=== PATIENT | female | born 1995 | race Caucasian/White ===

== ENCOUNTER 2020-03-10 15:05 | Observation (INO) | payer OTHER ==
[~2020-03-10] VITALS: Ht 154.9 cm; Wt 70.8 kg
[2020-03-10] MEDS ORDERED: PNV91TAB8 PO (15:35)
[2020-03-10 15:38] VITALS: BP 116/59
[2020-03-10] MEDS ORDERED: PANTOPRAZOLE 40 MG TABEC PO ONE ×2 (15:55→16:02)
[2020-03-10] MEDS ORDERED: FAMOTIDINE 20 MG TAB PO ONE (15:55)
[2020-03-10] MEDS ORDERED: CALC500C17 PO (16:00)
[2020-03-10] MEDS ORDERED: FAMOTIDINE 20 MG TAB ONE (16:02)
[2020-03-10 16:18] LABS: BASOPHILS % (AUTO) 0.1 % (0.0-2.0); EOSINOPHILS % (AUTO) 0.4 % (0.0-4.0); HEMATOCRIT 31.9 % (36-48); HEMOGLOBIN 10.8 g/dL (12.0-16.0); LYMPHOCYTES # (AUTO) 0.8 K/uL (2.5-16.5); LYMPHOCYTES % (AUTO) 11.1 % (20.5-51.1); MEAN CORPUSCULAR HEMOGLOBIN 28 pg (27-31); MEAN CORPUSCULAR HGB CONC 34 g/dL (33-37); MEAN CORPUSCULAR VOLUME 82.4 fL (80-94); MONOCYTES # (AUTO) 0.6 K/uL (0.8-1.0); MONOCYTES % (AUTO) 7.8 % (1.7-9.3); NEUTROPHILS # (AUTO) 6.1 K/uL (1.8-7.7); NEUTROPHILS % (AUTO) 80.6 % (42.2-75.2); PLATELET COUNT (AUTO) 190 K/uL (140-450); RED BLOOD CELL COUNT(AUTO) 3.87 MIL/uL (4.20-5.40); RED CELL DISTRIBUTION WIDTH 13.6 % (11.6-13.7); WHITE BLOOD COUNT (AUTO) 7.5 K/uL (4.8-10.8)
[2020-03-10 16:21] LABS: APPEARANCE,URINE CLOUDY (CLEAR); BILIRUBIN,URINE 1+ (NEGATIVE); BLOOD, URINE NEGATIVE (NEGATIVE); COLOR,URINE DARK YELLOW (YELLOW); LEUKOCYTE ESTERASE ,URINE 2+ (NEGATIVE); NITRITE, URINE NEGATIVE (NEGATIVE); UGLUCOSE NEGATIVE (NEGATIVE)
[2020-03-10 16:43] LABS: ALBUMIN 2.8 g/dL (3.4-5.0); ANION GAP 12.1 (8-16); CARBON DIOXIDE 24.4 mmol/L (21-32); CREATININE 0.5 mg/dL (0.6-1.3); POTASSIUM 3.5 mmol/L (3.5-5.1); TOTAL BILIRUBIN 1.1 mg/dL (0.0-1.0)
[2020-03-10 16:47] LABS: RBC,URINE 0-5 /HPF (0-5); WBC,URINE 16-25 (MOD) /HPF (0-5)
== END 2020-03-10 18:05 | disposition home or self-care (01) ==
LOC: MLD 15:05
PROVIDERS: ADMIT Obstetrics & Gynecology; ATTEND Obstetrics & Gynecology
DX: O99.612 Diseases of the digestive system complicating pregnancy, second trimester (principal); K21.9 Gastro-esophageal reflux disease without esophagitis; Z3A.26 26 weeks gestation of pregnancy
CPT/HCPCS: 36415; 59025; 80053; 81001; 85025; 87086; G0378

== ENCOUNTER 2020-06-24 04:30 | Emergency (ER) | payer OTHER ==
[~2020-06-24] VITALS: Ht 154.9 cm; Wt 69.9 kg
[~2020-06-24 04:30] MED LIST: CALC500C17 PO; PNV91TAB8 PO
[2020-06-24 04:32] VITALS: BP 124/71
--- NOTE | 2020-06-24 04:32 | NUR ---
TO BED AMBULATORY
--- NOTE | 2020-06-24 04:42 | NUR ---
25/F BIB SELF COMPLAINING OF NON-RADIATING EPIGASTRIC PAIN 09/30 SINCE 2299. PT ALREADY HAD 3 EPISODES OF VOMITING SINCE. PT DENIES ANY PAINFUL URINATION, FEVER, CHILLS, DIARRHEA, VAGINAL DISCHARGES. PT ALSO 9 DAYS POST-. PT NOT IN DISTRESS, VS STABLE. PT KEPT COMFORTABLE, SAFETY MEASURES IN PLACE. WILL CONTINUE TO MONITOR. DENIES PMH NKA
--- NOTE | 2020-06-24 05:20 | NUR ---
EKG PERFORMED AT BEDSIDE. EKG READS SINUS RHYTHM @ 52
--- NOTE | 2020-06-24 05:39 | NUR ---
PT OFF TO CT
[2020-06-24] MEDS: ONDANSETRON 4 MG/2 ML VIAL IVP ONE (05:42)
[2020-06-24] MEDS: NACL 0.9% 1,000 ML IV SCH (05:42)
[2020-06-24 05:43] LABS: BASOPHILS % (AUTO) 0.2 % (0.0-2.0); EOSINOPHILS % (AUTO) 0.1 % (0.0-4.0); HEMATOCRIT 29.8 % (36-48); HEMOGLOBIN 9.8 g/dL (12.0-16.0); LYMPHOCYTES % (AUTO) 12.6 % (20.5-51.1); MEAN CORPUSCULAR HEMOGLOBIN 27 pg (27-31); MEAN CORPUSCULAR HGB CONC 33 g/dL (33-37); MEAN CORPUSCULAR VOLUME 81.1 fL (80-94); MONOCYTES # (AUTO) 0.3 K/uL (0.8-1.0); MONOCYTES % (AUTO) 3.4 % (1.7-9.3); NEUTROPHILS # (AUTO) 6.8 K/uL (1.8-7.7); NEUTROPHILS % (AUTO) 83.7 % (42.2-75.2); PLATELET COUNT (AUTO) 400 K/uL (140-450); RED BLOOD CELL COUNT(AUTO) 3.68 MIL/uL (4.20-5.40); RED CELL DISTRIBUTION WIDTH 14.6 % (11.6-13.7); WHITE BLOOD COUNT (AUTO) 8.2 K/uL (4.8-10.8)
[2020-06-24] MEDS: MORPHINE SULFATE 2 MG/ML SYR IVP ONE (05:43)
[2020-06-24] MEDS: PANTOPRAZOLE 40 MG INJ VIAL IVP ONE (05:43)
--- NOTE | 2020-06-24 05:46 | NUR ---
PT BACK FROM CT
[2020-06-24 05:52] LABS: APPEARANCE,URINE HAZY (CLEAR); BILIRUBIN,URINE NEGATIVE (NEGATIVE); BLOOD, URINE 1+ (NEGATIVE); COLOR,URINE YELLOW (YELLOW); LEUKOCYTE ESTERASE ,URINE NEGATIVE (NEGATIVE); NITRITE, URINE NEGATIVE (NEGATIVE); PH,URINE 7.5 (5.0-9.0); UGLUCOSE NEGATIVE (NEGATIVE)
[2020-06-24 05:58] LABS: ALBUMIN 3.2 g/dL (3.4-5.0); ANION GAP 11.1 (8-16); CARBON DIOXIDE 27.8 mmol/L (21-32); CREATININE 0.5 mg/dL (0.6-1.3); POTASSIUM 3.9 mmol/L (3.5-5.1); TOTAL BILIRUBIN 0.8 mg/dL (0.0-1.0)
[2020-06-24 06:07] LABS: RBC,URINE 0-5 /HPF (0-5)
--- NOTE | 2020-06-24 06:28 | NUR ---
VS TAKEN. PT BRADYCARDIC HR 49. MADE AWARE. REPEAT EKG ORDERED. Addendum: 06/24/[address] LAZO CANCELLED REPEAT EKG. CURRENT HR 54. PT NOT IN DISTRESS.
--- NOTE | 2020-06-24 06:31 | NUR ---
US AT BEDSIDE
[2020-06-24] MEDS ORDERED: cefTRIAXone 1,000 MG VIAL ONE (06:35)
--- NOTE | 2020-06-24 07:32 | NUR ---
ENDORSED TO RUTH ANN BEST FOR CONTINUITY OF CARE
[2020-06-24] MEDS ORDERED: CEPH-588 PO (10:11)
--- NOTE | 2020-06-24 11:07 | NUR ---
Patient discharged with v/s stable. Written and verbal after care instructions given and explained. Patient verbalized understanding. Ambulatory with steady gait. All questions addressed prior to discharge. Advised to follow up with PMD.
[2020-06-24 11:11] VITALS: BP 119/64
== END 2020-06-24 11:07 | disposition left against medical advice (07) ==
LOC: MED 04:30
DX: K80.20 Calculus of gallbladder without cholecystitis without obstruction (principal); N39.0 Urinary tract infection, site not specified; Z79.899 Other long term (current) drug therapy
CPT/HCPCS: 36415; 74176; 76700; 80053; 81001; 83605; 83690; 84484; 85025; 87086; 93005; 96365; 96375; 99285; C9113; J0696; J2270; J2405; J7030

== ENCOUNTER 2020-06-25 16:28 | Emergency (ER) | payer OTHER ==
[~2020-06-25] VITALS: Ht 154.9 cm; Wt 69.9 kg
[~2020-06-25 16:28] MED LIST changes: -CALC500C17 PO
[2020-06-25 16:39] VITALS: BP 127/80
--- NOTE | 2020-06-25 16:40 | NUR ---
PT TAKEN TO ER BED 11 FOR BEDSIDE TRIAGE.
--- NOTE | 2020-06-25 16:43 | NUR ---
25 Y/O FEMALE C/O ABDOMINAL PAIN 09/30 DESCRIBES SHARP AND CONSTANT NON-RADIATING X1DAY. PT STATES +NAUSEA NO VOMITING, DENIES FEVER/CHILLS. PT STATES SHE WAS SEEN HERE IN ER YESTERDAY AND WAS TOLD IT WAS GALLSTONES, PRESCRIBED MEDICATION BUT SYMPTOMS HAVE WORSENED SINCE D/C YESTERDAY. ABDOMEN IS SOFT, ROUND, NON-TENDER TO PALPATION, BOWEL SOUNDS ACTIVE X4. LAST BM 06/24/20. DENIES PMH NKA
--- NOTE | 2020-06-25 16:57 | NUR ---
Pt ambulated to restroom for UA collection.
[2020-06-25] MEDS ORDERED: MORPHINE SULFATE 4 MG/ML SYR IVP ONE (19:20)
[2020-06-25] MEDS ORDERED: NACL 0.9% 1,000 ML IV ONE (19:20)
[2020-06-25] MEDS ORDERED: ONDANSETRON 4 MG/2 ML VIAL IVP ONE (19:20)
[2020-06-25 19:36] LABS: BASOPHILS % (AUTO) 0.1 % (0.0-2.0); EOSINOPHILS % (AUTO) 0.7 % (0.0-4.0); HEMATOCRIT 29.6 % (36-48); HEMOGLOBIN 9.7 g/dL (12.0-16.0); LYMPHOCYTES # (AUTO) 1.4 K/uL (2.5-16.5); LYMPHOCYTES % (AUTO) 21.2 % (20.5-51.1); MEAN CORPUSCULAR HEMOGLOBIN 27 pg (27-31); MEAN CORPUSCULAR HGB CONC 33 g/dL (33-37); MEAN CORPUSCULAR VOLUME 82.7 fL (80-94); MONOCYTES # (AUTO) 0.4 K/uL (0.8-1.0); MONOCYTES % (AUTO) 6.7 % (1.7-9.3); NEUTROPHILS # (AUTO) 4.6 K/uL (1.8-7.7); NEUTROPHILS % (AUTO) 71.3 % (42.2-75.2); PLATELET COUNT (AUTO) 424 K/uL (140-450); RED BLOOD CELL COUNT(AUTO) 3.57 MIL/uL (4.20-5.40); RED CELL DISTRIBUTION WIDTH 14.6 % (11.6-13.7); WHITE BLOOD COUNT (AUTO) 6.5 K/uL (4.8-10.8)
--- NOTE | 2020-06-25 19:37 | NUR ---
REPORT RECIEVED FROM NASIR CARLSON FOR CHANGE OF SHIFT.
--- NOTE | 2020-06-25 19:37 | NUR ---
Gave report to NASIR Butler. Transfer of care at this time.
[2020-06-25 19:50] LABS: ALBUMIN 3.3 g/dL (3.4-5.0); CARBON DIOXIDE 24.7 mmol/L (21-32); CREATININE 0.6 mg/dL (0.6-1.3); POTASSIUM 3.7 mmol/L (3.5-5.1); TOTAL BILIRUBIN 0.9 mg/dL (0.0-1.0)
--- NOTE | 2020-06-25 20:16 | NUR ---
ERMD AT BEDSIDE.
--- NOTE | 2020-06-25 21:29 | NUR ---
Patient appears to be resting comfortably in bed. Vital Signs within normal limits. Respirations even and unlabored. BLANKET AND SOCKS PROVIDED FOR COMFORT.
[2020-06-25 22:05] VITALS: BP 107/83
== END 2020-06-25 22:05 | disposition home or self-care (01) ==
LOC: MED 16:28
DX: K80.70 Calculus of gallbladder and bile duct without cholecystitis without obstruction (principal); Z79.899 Other long term (current) drug therapy
CPT/HCPCS: 36415; 80053; 81002; 81025; 83690; 84702; 85025; 96361; 96374; 96375; 99284; J2270; J2405; J7030